=== PATIENT | female | born 1955 | race African-American/Black ===

== ENCOUNTER 2018-02-06 13:20 | Emergency (ER) | payer OTHER ==
[~2018-02-06] VITALS: Ht 165.1 cm; Wt 78.0 kg
[~2018-02-06 13:20] MED LIST: ASPI-864 PO; FURO-151; HYDR12.54 PO; LIP40 PO; LOSA50TA20 PO
[2018-02-06 17:59] LABS: EOSINOPHILS % 0.9 % (0.0-5.0); HEMATOCRIT. 41.2 % (36.0-48.0); HEMOGLOBIN. 13.6 g/dL (12.0-16.0); LYMPHOCYTES % 37.6 % (20.0-50.0); MEAN CORPUSCULAR HEMOGLOBIN 28.3 pg (28.0-32.0); MEAN CORPUSCULAR VOLUME 85.6 fL (81.0-99.0); MEAN PLATELET VOLUME 8.1 fl (7.4-10.4); MONOCYTES % 8.1 % (2.0-8.0); NEUTROPHILS % 52.4 % (40.0-76.0); PLATELET 256 x1000/uL (130-400); RED BLOOD CELL COUNT 4.82 mill/uL (4.2-5.4); RED CELL DISTRIBUTION WIDTH 14.3 % (11.6-14.6)
[2018-02-06 18:05] LABS: CHLORIDE 109 mEq/L (98-107)
[2018-02-06] MEDS ORDERED: TRAMADOL 50MG TABLET PO ONE (20:00)
[2018-02-06 20:32] VITALS: BP 165/88
== END 2018-02-06 20:33 | disposition home or self-care (01) ==
LOC: ER 13:20
DX: R20.2 Paresthesia of skin (principal); K21.9 Gastro-esophageal reflux disease without esophagitis; I10 Essential (primary) hypertension; H40.9 Unspecified glaucoma; R11.2 Nausea with vomiting, unspecified; R06.02 Shortness of breath; F17.200 Nicotine dependence, unspecified, uncomplicated; Z79.82 Long term (current) use of aspirin; Z86.73 Personal history of transient ischemic attack (TIA), and cerebral infarction without residual deficits
CPT/HCPCS: 36415; 70551; 80053; 83735; 85025; 99285; Z7610

== ENCOUNTER 2019-12-03 16:42 | Emergency (ER) | payer BC, OTHER ==
[~2019-12-03] VITALS: Ht 157.5 cm; Wt 73.0 kg
[~2019-12-03 16:42] MED LIST changes: -LOSA50TA20 PO; +LOSA50TA41 PO
[2019-12-03] MEDS ORDERED: DEXAMETHASONE 4MG TABLET PO NR (17:45)
[2019-12-03 22:41] VITALS: BP 165/75
== END 2019-12-03 22:44 | disposition home or self-care (01) ==
LOC: ER 16:42
DX: M48.02 Spinal stenosis, cervical region (principal); M54.12 Radiculopathy, cervical region; M53.2X1 Spinal instabilities, occipito-atlanto-axial region; I10 Essential (primary) hypertension; Z79.899 Other long term (current) drug therapy; Z86.73 Personal history of transient ischemic attack (TIA), and cerebral infarction without residual deficits
CPT/HCPCS: 72040; 72052; 72141; 99284; J8540